=== PATIENT | male | born 1950 | race Caucasian/White ===

== ENCOUNTER 2019-02-11 06:55 | Inpatient (IN) | payer OTHER, MEDICARE ==
[~2019-02-11] VITALS: Ht 188 cm; Wt 102.1 kg
--- NOTE | ~2019-02-11 | OP ---
[facility] [address] [place] [address] OPERATIVE REPORT Name: SILKE AREVALO Room: [address] IN M.R.#: [id number] Admission: 02/11/19 Attend Phys: Marianne Blair Discharge: Date of : 52 Report #: [id number] THIS REPORT FOR: //name// CC: Ruiz Malloy DATE OF SERVICE: 02/11/2019 PREOPERATIVE DIAGNOSIS: Right hip osteoarthritis. POSTOPERATIVE DIAGNOSIS: Right hip osteoarthritis. PROCEDURE: Right total hip arthroplasty. SURGEON: Toi Erwin II, DO INVESTMENT BROKER: ALPHONSE [place] ANESTHESIA: General endotracheal. ESTIMATED BLOOD LOSS: 500 mL with 130 mL given back through Cell [employer] due to hypotension intraoperatively. ANTIBIOTICS: Ancef preoperatively. DRAINS: Medium Hemovac. COMPLICATIONS: None. CONDITION: The patient is stable to recovery room. IMPLANTS: Listed in the operative record and progress note. BRIEF HISTORY: The patient was seen in preoperative area. A preoperative H and P was performed. Site was marked, questions were answered. Risks and benefits were discussed with the patient in detail about the surgery. The patient wished to proceed and assuming all risks. OPERATIVE PROCEDURE: The patient was taken to the operative suite and placed supine on the operating table, given appropriate anesthesia. The patient's operative hip was sterilely placed in the [place] table leg perera and sterilely prepped and draped in the supine position. Surgery began by a longitudinal incision over the anterior portion of the hip. This was carried down through subcutaneous tissues. A small elias was made in the tensor fascia. It was then split along its fibers and retracted laterally. An H capsulotomy was then [facility] [address] [place] [address] OPERATIVE REPORT Name: SILKE AREVALO Room: [address] IN [facility].#: [id number] Admission: 02/11/19 Attend Phys: Marianne Blair Discharge: Date of : 52 Report #: [id number] performed and careful hemostasis was maintained with electrocautery and Aquamantys. The head and neck cutting alignment guide was checked with fluoroscopic guidance. The appropriate cut was made to the head and neck and this was removed. Attention was then turned to the acetabulum. Excess labrum was removed. It was then reamed in a sequential fashion up to the appropriate size. This shown to have excellent bleeding bone in excellent position with fluoroscopic guidance. The acetabular cup was then malleted into position and secured with cancellous screws. The metal liner was then applied. The patient's leg was then rotated and extended on the [place] table to expose the femur. It was then broached in sequential fashion up to the appropriate size. The appropriate neck was then trialed with appropriate head length and shown to have excellent fit and fill and excellent stability of the hip through all range of motion. These trials were removed. The final stem was then malleted into position and the final head and neck was then malleted into position. It was reduced in appropriate fashion, checked with C-arm for appropriate leg length and shown to have excellent leg length throughout the exam without evidence of dislocation upon range of motion and shuck testing. Wound was then copiously irrigated. Hemostasis was maintained with electrocautery and Aquamantys. Pain cocktail was injected. PRP gel was sprayed throughout the internal aspects of the hip and drain was activated. The H capsulotomy was then closed using #1 Vicryl in [id number] fashion. The tensor fascia was closed with #1 Vicryl in a running fashion. Skin was then closed with 2-0 Vicryl and running 3-0 Monocryl with Dermabond was applied. The patient transported to recovery room in stable condition. Counts were correct throughout the procedure. By: [id number] Erwin II, DO /nt
[~2019-02-11 06:55] MED LIST: LISINOPRIL20 MG PO; LORAZEPAM 1 MG T1 M1 PO; ZOCOR20 MG PO
[2019-02-11 09:21] VITALS: BP 119/72
[2019-02-11 15:39] VITALS: BP 124/59
--- NOTE | 2019-02-11 15:48 | NUR ---
PT ADMITTED TO UNIT WITH RT HIP BALWINDER APPROACH. PT IS ALERT AND ORIENTED. PT ON 3 LITER O2 BY NASAL CANNULA WITH PULSE OX IN PLACE. PULSES 2+ ALL EXTREMEITIES. HEMOVAC TO RT KNEE. MEPILEX DRESSING D/R/I. ICE PACK TO RT HIP. POPPY HOSE ON. FOOT PUMPS IN PLACE. WALKER AND GAIT BELT X1 TO COMMODE. REGULAR DIET. FALL RISK PRECAUTIONS IN PLACE. WILL CONTINUE TO MONITOR.
--- NOTE | 2019-02-11 17:09 | NUR ---
PT REMAINED ALERT AND ORIENTED. PT HAS VOIDED. UP WITH WALKER AND GAIT BELT. PAIN MEDS GIVEN ORDERED. FALL RISK PRECAUTIONS IN PLACE. HOURLY ROUNDING COMPLETED. WILL CONTINUE TO MONITOR.
[2019-02-11 21:00] VITALS: BP 127/61
[2019-02-12] VITALS: BP 110/65
[2019-02-12 04:00] VITALS: BP 124/63
[2019-02-12 04:18] LABS: HEMOGLOBIN 11.5 gm/dL (14.0-18.0)
--- NOTE | 2019-02-12 05:54 | NUR ---
PATIENT SLEPT MOST OF THE NIGHT. IV FLUIDS CONTINUE TO INFUSE AT 75 ML/HR. DRESSING TO RIGHT HIP REMAINS INTACT WITH HEMOVAC IN PLACE. PATIENT WAS GIVEN PAIN MEDICINE ONCE THIS SHIFT. WILL CONTINUE TO MONITOR.
[2019-02-12 07:35] VITALS: BP 124/71
[2019-02-12] MEDS ORDERED: PERCOCET PO (10:10)
[2019-02-12] MEDS ORDERED: XARELTO10 MG PO (10:11)
[2019-02-12] MEDS ORDERED: COLACE100 MG PO (10:11)
[2019-02-12] MEDS ORDERED: CELEBREX 200 M200 M1 PO (10:12)
[2019-02-12 10:14] VITALS: BP 124/71
[2019-02-12 10:41] VITALS: BP 124/71
--- NOTE | 2019-02-12 11:00 | NUR ---
CALLED IN PRESCRIPTION WRITTEN FOR PARRISHREL[facility] TO PTS.PHARMACY. CANCELLED THIS WHEN SPEAKING WITH PT.,HE SAID HIS GOT THEM FILLED YESTERDAY AT [facility] HERE IN [place]. ,TEREZA CONFIRMED THIS SHE WAS IN ROOM. SHE ALSO GOT HIS PAIN MEDICATION. SHE WILL BE WITH HIM AT HOME TO ASSIST NEEDED. HE WOULD LIKE HOME HEALTH FIRST AND THEN TRANSITION TO OUT PT. HE HAS A FRONT WHEEL WALKER. HE IS NORMALLY INDEPENDENT AT HOME. HE IS PLANNING ON DISCHARGE TODAY AFTER AFTERNOON THERAPY.
--- NOTE | 2019-02-12 15:12 | NUR ---
PATIENT'S IV REMOVED. PATIENT AND SPOUSE VERBALIZED UNDERSTANDING IN REGARDS TO FOLLOW UP APPOINTMENTS, NEW MEDICATIONS, AND S/S TO CALL PHYSICIAN. PATIENT DISCHARGED TO HOME WITH ALL BELONGINGS. ESCORTED OFF NURSING UNIT VIA WHEELCHAIR WITH NURSING STAFF.
== END 2019-02-12 15:16 | disposition home health service (06) | DRG 470 ==
LOC: M.PRE 06:55 → M.ORTHSURG 08:29 → M.TBA 08:29 → M.PRE 08:37 → M.ORTHSURG 15:04
PROVIDERS: Orthopaedic Surgery; ADMIT Internal Medicine
PROC: 0SR901A Replacement of Right Hip Joint with Metal Synthetic Substitute, Uncemented, Open Approach (ICD-10-PCS; principal; 2019-02-12)
DX: M16.11 Unilateral primary osteoarthritis, right hip (principal); I10 Essential (primary) hypertension; E78.00 Pure hypercholesterolemia, unspecified; F41.1 Generalized anxiety disorder; Z96.642 Presence of left artificial hip joint; Z98.42 Cataract extraction status, left eye; Z98.41 Cataract extraction status, right eye; Z79.899 Other long term (current) drug therapy